=== PATIENT | male | born 1980 | race Caucasian/White ===

== ENCOUNTER 2018-03-30 18:56 | Emergency (ER) | payer OTHER ==
[~2018-03-30] VITALS: Ht 170.2 cm; Wt 64.4 kg
[2018-03-30 19:17] VITALS: Ht 170.2 cm; Wt 64.4 kg
[2018-03-30 20:24] LABS: BASOPHIL % 0.1 % (0-2); PLATELET COUNT 178 x10^3mcL (130-400); RED CELL DISTRIBUTION WIDTH 12.9 % (11.5-14.5)
[2018-03-30 21:13] LABS: CREATININE SERUM 0.9 mg/dL (0.7-1.3); GFR1 > 60 mL/min
[2018-03-30 21:19] LABS: CALCIUM 9.7 mg/dL (8.5-10.1); CARBON DIOXIDE 26.5 mmol/L (21-32); CHLORIDE SERUM 104 mmol/L (98-107); GLUCOSE SERUM 115 mg/dL (74-106); POTASSIUM SERUM 3.8 mmol/L (3.5-5.1); SODIUM SERUM 139 mmol/L (136-145)
[2018-03-30 21:24] LABS: ALBUMIN 3.4 g/dL (3.4-5.0); ALKALINE PHOSPHATASE 148 U/L (46-116); ALT/SGPT 220 U/L (16-63); AST/SGOT 115 U/L (15-37); BILIRUBIN TOTAL 0.4 mg/dL (0.20-1.00); TOTAL PROTEIN, SERUM 8.2 g/dL (6.4-8.2)
[2018-03-30 23:03] VITALS: BP 146/76
== END 2018-03-30 23:03 | disposition home or self-care (01) ==
LOC: ED 18:56
PROVIDERS: Emergency Medicine
DX: Z86.19 Personal history of other infectious and parasitic diseases (principal); F15.10 Other stimulant abuse, uncomplicated
CPT/HCPCS: 36415; 83880; J1885; Q0092

== ENCOUNTER 2018-05-13 18:23 | Emergency (ER) | payer OTHER ==
[~2018-05-13] VITALS: Ht 167.6 cm; Wt 71.7 kg
[2018-05-13 18:47] VITALS: Ht 167.6 cm; Wt 71.7 kg
[2018-05-13 21:47] VITALS: BP 140/92
== END 2018-05-13 21:47 | disposition home or self-care (01) ==
LOC: ED 18:23
DX: L03.114 Cellulitis of left upper limb (principal)
CPT/HCPCS: 90715; J2001

== ENCOUNTER 2018-07-14 14:10 | Emergency (ER) | payer OTHER ==
[~2018-07-14] VITALS: Ht 170.2 cm; Wt 72.1 kg
[2018-07-14 14:51] VITALS: BP 131/78
[2018-07-14 16:28] LABS: RED CELL DISTRIBUTION WIDTH 13.4 % (11.5-14.5)
[2018-07-14 16:30] LABS: BASOPHIL % 0.3 % (0-2); PLATELET COUNT 254 x10^3mcL (130-400)
[2018-07-14 16:42] LABS: CALCIUM 9.3 mg/dL (8.5-10.1); CARBON DIOXIDE 30.5 mmol/L (21-32); CHLORIDE SERUM 100 mmol/L (98-107); CREATININE SERUM 0.8 mg/dL (0.7-1.3); GFR1 > 60 mL/min; GLUCOSE SERUM 82 mg/dL (74-106); POTASSIUM SERUM 4.4 mmol/L (3.5-5.1); SODIUM SERUM 136 mmol/L (136-145)
[2018-07-14 16:46] LABS: ALBUMIN 3.6 g/dL (3.4-5.0); ALKALINE PHOSPHATASE 150 U/L (46-116); ALT/SGPT 136 U/L (16-63); AST/SGOT 93 U/L (15-37); BILIRUBIN TOTAL 0.36 mg/dL (0.20-1.00)
[2018-07-14 16:47] LABS: TOTAL PROTEIN, SERUM 9.1 g/dL (6.4-8.2)
== END 2018-07-14 17:20 | disposition home or self-care (01) ==
LOC: ED 14:10
PROVIDERS: Emergency Medicine
DX: S82.55XA Nondisplaced fracture of medial malleolus of left tibia, initial encounter for closed fracture (principal); F17.210 Nicotine dependence, cigarettes, uncomplicated; Z71.6 Tobacco abuse counseling; X58.XXXA Exposure to other specified factors, initial encounter; Y93.89 Activity, other specified; Y92.89 Other specified places as the place of occurrence of the external cause; Y99.8 Other external cause status
CPT/HCPCS: 36415; 99406; J7030

== ENCOUNTER 2019-09-21 17:50 | Emergency (ER) | payer OTHER ==
[~2019-09-21] VITALS: Ht 170.2 cm; Wt 77.1 kg
[2019-09-21 18:16] VITALS: BP 134/86; Ht 170.2 cm; Wt 77.1 kg
== END 2019-09-21 19:50 | disposition home or self-care (01) ==
LOC: ED 17:50
DX: L03.113 Cellulitis of right upper limb (principal); F17.210 Nicotine dependence, cigarettes, uncomplicated
CPT/HCPCS: J0696

== ENCOUNTER 2019-11-26 17:40 | Emergency (ER) | payer OTHER ==
[~2019-11-26] VITALS: Ht 167.6 cm; Wt 72.6 kg
[2019-11-26 17:47] VITALS: Ht 167.6 cm; Wt 72.6 kg
[2019-11-26 18:58] VITALS: BP 136/89
== END 2019-11-26 18:58 | disposition home or self-care (01) ==
LOC: ED 17:40
DX: L03.115 Cellulitis of right lower limb (principal); F17.210 Nicotine dependence, cigarettes, uncomplicated
CPT/HCPCS: J0696